=== PATIENT | female | born 1965 | race Caucasian/White ===

== ENCOUNTER 2025-04-12 18:20 | Emergency (ER) | payer BC, SELFPAY ==
--- NOTE | ~2025-04-12 | CT_ITS ---
CT abdomen pelvis w con Clinical History: abdominal pain . Comparison: None Technique: Axial images lung bases to symphysis pubis 100 mL Omnipaque 350 Coronal, sagittal reformats CT images acquired with automatic exposure control for dose reduction DLP: 820 mGy-cm Findings: Lower most pelvis excluded from exam. Lung bases: A few tiny nodules all less than 4 mm. Visualized heart and pericardium: Unremarkable. Liver: Enlarged. Steatosis. Gallbladder: Removed. Spleen: Unremarkable. Pancreas: Unremarkable. Adrenal glands: Unremarkable. Kidneys: Right kidney- No hydronephrosis. No renal stones. Small cysts. Left kidney- No hydronephrosis. No renal stones. Small cysts. Distal esophagus/stomach: Unremarkable. Small bowel loops: Normal caliber and wall thickness. Colon: Normal caliber and wall thickness. Normal RLQ appendix. Nodes: No enlarged nodes. Peritoneum: No ascites. No free air. Urinary bladder: Unremarkable. Uterus: Unremarkable. Adnexa: No masses. Bones: No acute bony abnormality. Soft tissues: Unremarkable. Aorta: No aneurysm or dissection. IVC: Unremarkable. Main portal vein/SMV/splenic vein: Patent. IMPRESSION: 1. No acute findings. Reviewed, dictated and finalized at location R. . DIRECTOR PRODUCT MANAGEMENT IMPRESSION: 1. No acute findings.
[2025-04-12 18:24] VITALS: BP 188/99; PULSE 83; RESP 16; TEMP 36.4; O2SAT 99
[2025-04-13] VITALS (13 sets, daily range): BP systolic 160–186; BP diastolic 87–100; PULSE 60–80; RESP 12–22; TEMP 36.4–36.8; O2SAT 96–100
--- OUTSIDE RECORDS SUMMARY | 2025-04-13 01:06 | XMS_ITS | Encounter Summary ---
Author Organization [facility] Address [address] [place] [address] Care Team Providers Care Parimutuel Clerk Name Role Phone Unavailable Primary Care Provider Unavailabl e Source Comments In the event that this information is protected by federal Confidentiality ofSubstance Use DisorderPatient Records, CFR Part 2 prohibits theunauthorized disclosure of these records.[facility] Encounter Details Date Type Department Care Team ([facility] Contact Info) Description 07/21/2019 Orders Only [place] [facility] [address] [place] [phone] Provider, Historical Social History Tobacco Use Types Packs/Day Years Used Date Smoking Tobacco: Never Assessed Comments Unknown Sex and Gender Information Value Date Recorded Sex Assigned at Female 06/21/2019 2:01 PM SENIOR ACCOUNTS PAYABLE CLERK Legal Sex Female 11:19 AM SENIOR ACCOUNTS PAYABLE CLERK Gender Identity Female 06/21/2019 2:01 PM SENIOR ACCOUNTS PAYABLE CLERK Sexual Orientation Straight 06/21/2019 2: 01 PM SENIOR ACCOUNTS PAYABLE CLERK documented as of this encounter Plan of Treatment Not on file documented as of this encounter Procedures Procedure Name Priority Date/Time Associated Diagnosis Comments OBTAIN MEDICAL RECORDS Routine 07/21/2019 documented in this encounter Results * Obtain Medical Records (07/21/2019) us Historical Provider NURSING INFORMATIONAL/COMMUN ICATION ORDERABLES Final Result [facility] [address] [place] [address] documented in this encounter Visit Diagnoses Not on filedocumented in this encounter
--- OUTSIDE RECORDS SUMMARY | 2025-04-13 01:06 | XMS_ITS | Clinical Summary ---
Author Organization [facility] Address [address] [place] [address] Phone Care Team Providers Care Windows Desktop Engineer Name Role Phone Alejandra Tovar MD Primary Care Provider [phone] Allergies Active Allergy Reactions Criticality Noted Date Comments Aspirin Diarrhea 07/03/2019 Medications ARIPiprazole (ABILIFY) 5 MG Tablet Take 5 mg by mouth daily. Active diazePAM (VALIUM) 10 MG Tablet Take 10 mg by mouth 3 times daily as needed. 05/24/2019 Active lamoTRIgine (LAMICTAL) 200 MG Tablet Take 200 mg by mouth 2 times daily. 03/08/2019 Active magnesium oxide (MAG-OX) 400 MG Tablet Take 400 mg by mouth daily. Active meclizine (ANTIVERT) 25 MG Tablet Take 25 mg by mouth 2 times daily. 05/24/2019 Active pravastatin (PRAVACHOL) 40 MG Tablet Take 40 mg by mouth nightly. 04/23/2019 Active propranolol (INDERAL LA) 160 MG CAPSULE SR 24 HR Take 160 mg by mouth daily. 12/31/2018 Active sertraline (ZOLOFT) 100 MG Tablet Take 100 mg by mouth 2 times daily. 06/12/2019 Active SITagliptin (JANUVIA) 25 MG Tablet Take 25 mg by mouth daily. 04/25/2019 Active topiramate (TOPAMAX) 100 MG Tablet Take 100 mg by mouth 2 times daily. 05/24/2019 Active acetaminophen (TYLENOL) 500 MG Tablet Take 1,000 mg by mouth every 6 hours as needed. Take a max of 5 tablets per day Active Active Problems Problem Noted Date Diagnosed Date Involuntary movements 07/08/2019 Debility 07/03/2019 Immunizations Immunization Administration Dates Next Due Influenza Vaccine 02/18/2019 Pneumococcal Vaccine Adult - 23 Valent 0 Family History Medical History Relation Name Comments Hypertension Mother Relation Name Status Comments Father Mother Social History Tobacco Use Types Packs/Day Years Used Date Smoking Tobacco: Never Smokeless Tobacco: Never Alcohol Use Standard Drinks/Week Comments Never 0 (1 standard drink = 0.6 oz pur e alcohol) AUDIT-C Answer Date Recorded Q1: How often do you have a drink containing alc ohol? 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 Gender Identity Not on file Sexual Orientation Not on file Last Filed Vital Signs Vital Sign Reading Time Taken Comments Blood Pressure 103/72 07/16/2019 9:06 AM CDT Pulse 64 07/16/2019 9:06 AM CDT Temperature 36.8 C (98.2 F) 07/16/2019 9:06 AM CDT Respiratory Rate 16 07/16/2019 9:06 AM CDT Oxygen Saturation 100% 07/16/2019 9:06 AM CDT Inhaled Oxygen Concentration - - Weight 90.8 kg (200 lb 3 oz) 07/13/2019 6:30 AM CDT Height 162.6 cm (5' 4) 07/02/2019 8:37 PM CDT Body Mass Index 34.36 07/02/2019 8:37 PM CDT Plan of Treatment Not on file [place] [address] [address] Advance Directives * Full Code (Latest Code Status on File) Date Activated Date Inactivated Comments 07/02/2019 9:43 PM 07/16/2019 3:09 PM CPR-Full Vikash atment: FULL ARREST: Attempt Resuscitation/CPR wit intubation and mechanical ventilation. PRE-ARREST: Use entire range of life support measures to stabilize the patient. Care Teams Windows Desktop Engineer Relationship Specialty Start Date End Date Alejandra Tovar MD [address] [place] [address] [facility] [place] [address] PCP - General Family Medicine 07/01/19
--- OUTSIDE RECORDS SUMMARY | 2025-04-13 01:06 | XMS_ITS | Clinical Summary ---
Author Organization [facility] Address [address] [place] [address] Care Team Providers Care Instructional Media Services Technician Name Role Phone Unavailable Primary Care Provider Unavailabl e Source Comments In the event that this is information that is protected by federal Confidentiality of Substance UseDisorder Patient Records, 42 CFR Part 2 prohibits the unauthorized disclosure of these records.[facility] Allergies Active Allergy Reactions Criticality Noted Date Comments Aspirin Other (See Comments) High 12/25/2010 Medications ARIPiprazole 5 mg tablet Take 5 mg by mouth daily. Active sitagliptin (JANUVIA) 25 mg Tablet Take 25 mg by mouth daily. 04/25/2019 Active lamoTRIgine 200 mg tablet Take 200 mg by mouth 2 (two) times daily. 03/08/2019 Active pravastatin 40 mg tablet Take 40 mg by mouth daily. 04/23/2019 Active propranoloL 160 mg capsule,extended release 24 hr Take 160 mg by mouth daily. 12/31/2018 Active sertraline 100 mg tablet Take 100 mg by mouth 2 (two) times daily. 06/12/2019 Active Social History Tobacco Use Types Packs/Day Years Used Date Smoking Tobacco: Never Smokeless Tobacco: Never Alcohol Use Standard Drinks/Week Comments Not Currently 0 (1 standard drink = 0.6 oz pur e alcohol) Comments Unknown Sex and Gender Information Value Date Recorded Sex Assigned at Female 06/21/2019 2:01 PM SR SOLUTIONS CONSULTANT Legal Sex Female 11:19 AM SR SOLUTIONS CONSULTANT Gender Identity Female 06/21/2019 2:01 PM SR SOLUTIONS CONSULTANT Sexual Orientation Straight 06/21/2019 2: 01 PM SR SOLUTIONS CONSULTANT Last Filed Vital Signs Vital Sign Reading Time Taken Comments Blood Pressure 146/86 06/25/2019 9:32 AM SR SOLUTIONS CONSULTANT Pulse 75 06/25/2019 9:32 AM SR SOLUTIONS CONSULTANT Temperature - - Respiratory Rate - - Oxygen Saturation 100% 06/25/2019 9:32 AM SR SOLUTIONS CONSULTANT Inhaled Oxygen Concentration - - Weight 96.2 kg (212 lb) 09/06/2019 11:29 AM CDT Height 154.9 cm (5' 1) 09/06/2019 11:29 AM CDT Body Mass Index 40.06 09/06/2019 11:29 AM CDT Plan of Treatment Health Maintenance Due Date Last Done Comments 1 YR COLONOSCOPY 1964 10 YR COLONOSCOPY 1964 2 YR COLONOSCOPY 1964 3 MONTHS COLONOSCOPY 1964 3 YR COLONOSCOPY 1964 4 YR COLONOSCOPY 1964 5 YEAR SIGMOIDOSCOPY 1964 5 YR COLONOSCOPY 1964 6 MONTHS COLONOSCOPY 1964 6 YR COLONOSCOPY 1964 7 YR COLONOSCOPY 1964 8 YR COLONOSCOPY 1964 9 YR COLONOSCOPY 1964 ANNUAL FOBT [address] Colonography 1964 Colorectal Cancer Screening 1964 HIV SCREENING 02/20/1979 HEPATITIS C SCREENING 02/20/1982 LIPID TESTING 02/20/1982 CERVICAL CANCER SCREENING 02/20/1985 BREAST CANCER SCREENING 2004 ZOSTER (1 of 2) 02/20/2014 Pneumococcal 50+ (2 of 2 - PCV) 07/02/2020 07/03/2019, 10/19/2017, 03/14/2010 Diabetes Screening 03/03/2022 03/03/2019 COVID-19 VACCINE ( - season) 2024 INFLUENZA (#1) 2024 02/18/2019, 10/0 04/2017, 01/17/2017, Additional history exists DTAP/TDAP/TD (3 - Td or Tdap) 02/15/2027 02/15/2017, 03/14/2010, 01/21/1997 MENINGOCOCCAL B (MENB) Aged Out No lo nger eligible based on patient's age to complete this topic Insurance [facility] PPO
[2025-04-13 01:44] LABS: Hematocrit 40.2 % (37.0-47.0); Hemoglobin 13.2 g/dL (12.0-15.0); Immature Granulocyte Percent A 0.3 % (0-0.5); Lymphocytes Absolute Auto 1.59 K/mm3 (0.9-3.2); Mean Corpuscular HGB Conc 32.8 g/dl (32-36); Mean Corpuscular Hemoglobin 30.6 pg (26-34); Mean Corpuscular Volume 93.3 fl (80-100); Nucleated Red Blood Cells Absolute Auto 0.000 K/mm3 (0.0-0.012); Nucleated Red Blood Cells Perc 0.0 % (0.0-0.2); Platelet Count Result 220 k/mm3 (150-375); Red Blood Count 4.31 M/mm3 (4.2-5.4); White Blood Count 9.2 K/mm3 (4.5-10.0)
[2025-04-13 01:53] LABS: Alanine Aminotransferase 18 U/L (6-35); Albumin Level 4.8 g/dL (3.5-5.1); Alkaline Phosphatase 97 U/L (38-126); Anion Gap 11 mmol/L (4-12); Aspartate Amino Transferase 21 U/L (14-36); Bilirubin,Total 0.5 mg/dL (0.2-1.3); Blood Urea Nitrogen 30 mg/dL (7-17); Calcium 9.9 mg/dL (8.4-10.2); Carbon Dioxide 22 mmol/L (22-30); Chloride 108 mmol/L (98-107); Estimated CRCL calculation 55 ml/min; Estimated Glomerular Filt Rate 56; Glucose 164 mg/dL (65-110); Lipase 145 U/L (23-300); Potassium 4.0 mmol/L (3.4-5.0); Sodium 141 mmol/L (137-145); Total Protein 8.4 g/dL (6.3-8.2)
[2025-04-13 04:28] LABS: Add Urine Microscopic? YES; Appearance Urine Clear (Clear); Glucose Urine UA 3+ mg/dL (Negative); Leukocyte Esterase Ur Negative LEU/UL (Negative); Nitrate Urine Negative (Negative); Non Pathogenic Casts 0-2; Specific Grav Ur > 1.045 (1.001-1.035)
--- NOTE | 2025-04-13 05:27 | ED_ITS ---
HPI - General Adult General Chief complaint: Abdominal Pain Stated complaint: constipation Time Seen by Provider: 04/13/25 00:44 History of Present Illness HPI narrative: patient is 60-year-old female presents emergency department with chief complaint of constipation patient reports that she feels as though she has to have a bowel movement reports she cannot get her bowels to move patient states she feels as though there is a large amount of stool in her rectum and when she pushes it tries to come out but will not Related Data Allergies Allergy/AdvReac Type Severity Reaction Status Date / Time aspirin AdvReac Intermediate bleeding Verified 04/12/25 18:26 Review of Systems 2 Review of Systems: A 10 system review of systems was completed on the patient and is negative except for what is stated in the HPI. Nursing and ancillary documentation was reviewed. Exam 2 Narrative: GENERAL: Well-appearing, well-nourished, and in no acute distress. HEAD: Normocephalic, atraumatic. EYES: PERRLA and EOMI. ENT: Nares clear, no rhinorrhea or epistaxis. Mucous membranes moist. NECK: Supple. CHEST: Clear to auscultation. No respiratory distress. HEART: Regular rate and rhythm. No murmur heard. Normal peripheral pulses. ABDOMEN: Soft, nontender, nondistended, normal active bowel sounds. : Rectal exam performed that had a large amount of stool in the rectum this was manually broken and a small amount was removed digitally EXTREMITIES: Normal range of motion. No edema. SKIN: Warm, dry, no rash. NEURO: No focal deficits. Alert and oriented x3. PSYCH: Normal mood and affect. Course Vital Signs Vital signs: Vital Signs Temperature 36.4 C 04/12/25 18:24 Pulse Rate 83 04/12/25 18:24 Respiratory Rate 16 04/12/25 18:24 Blood Pressure 188/99 H 04/12/25 18:24 Pulse Oximetry 99 04/12/25 18:24 Oxygen Delivery Room Air 04/12/25 18:24 Temperature 36.8 C 04/13/25 00:39 Pulse Rate 64 04/13/25 00:39 Respiratory Rate 16 04/13/25 00:39 Blood Pressure 174/92 H 04/13/25 00:39 Pulse Oximetry 100 04/13/25 00:39 Oxygen Delivery Room Air 04/13/25 00:39 MDM Differential Diagnosis Differential Diagnosis: differential diagnosis includes bowel obstruction, fecal impaction, laboratory studies were obtained showed normal CBC CMP showed a 30 glucose 164 lactate was 1.0 urinalysis showed no evidence UTI CT scan of the abdomen pelvis has been ordered and is currently pending the patient underwent a enema was massively successful and the patient feels much better Lab Data 04/13/25 01:38 04/13/25 01:38 Labs: Lab Results 04/13/25 04/13/25 Range/Units 01:38 04:14 WBC 9.2 (4.5-10.0) K/mm3 RBC 4.31 (4.2-5.4) M/mm3 Hgb 13.2 (12.0-15.0) g/dL Hct 40.2 (37.0-47.0) % MCV 93.3 (80-100) fl MCH 30.6 (26-34) pg MCHC 32.8 (32-36) g/dl RDW 13.2 (11.5-14.5) % Plt Count 220 (150-375) k/mm3 MPV 9.6 (7.4-10.4) fl Immature Gran % (Auto) 0.3 (0-0.5) % Neut % (Auto) 75.1 H (45.5-73.1) % Lymph % (Auto) 17.4 L (18.3-44.2) % [place] % (Auto) 6.1 (2.6-8.5) % Eos % (Auto) 0.9 (0-4.4) % Baso % (Auto) 0.2 (0.2-1.2) % Lymph # (Auto) 1.59 (0.9-3.2) K/mm3 [place] # (Auto) 0.6 (0.1-0.6) K/mm3 Eos # (Auto) 0.1 (0-0.3) K/mm3 Baso # (Auto) 0.0 (0.0-0.1) K/mm3 Abs Immat Gran (auto) 0.03 (0.00-0.031) K/mm3 Absolute Neuts (auto) 6.9 H (1.3-6.7) K/mm3 Absolute Nucleated RBC 0.000 (0.0-0.012) K/mm3 Nucleated RBC % 0.0 (0.0-0.2) % Sodium 141 (137-145) mmol/L Potassium 4.0 (3.4-5.0) mmol/L Chloride 108 H (98-107) mmol/L Carbon Dioxide 22 (22-30) mmol/L Anion Gap 11 (4-12) mmol/L BUN 30 H (7-17) mg/dL Creatinine 1.00 (0.7-1.0) mg/dL Estim Creat Clear Calc 55 ml/min Estimated GFR 56 L (59 - ) Glucose 164 H (65-110) mg/dL Lactic Acid 1.0 (0.7-2.0) mmol/L Calcium 9.9 (8.4-10.2) mg/dL Total Bilirubin 0.5 (0.2-1.3) mg/dL AST 21 (14-36) U/L ALT 18 (6-35) U/L Alkaline Phosphatase 97 (38-126) U/L Total Protein 8.4 H (6.3-8.2) g/dL Albumin 4.8 (3.5-5.1) g/dL Lipase 145 (23-300) U/L Urine Color Yellow (Yellow) Urine Appearance Clear (Clear) Urine pH 5.5 (5.0-9.0) Ur Specific [place] > 1.045 H (1.001-1.035) Urine Protein Trace (Negative) mg/dL Urine Glucose (UA) 3+ H (Negative) mg/dL Urine Ketones Negative (Negative) mg/dL Ur Blood (Man) Negative (Negative) Urine Nitrate Negative (Negative) Urine Bilirubin Negative (Negative) Urine Urobilinogen 0.2 (<2.0) mg/dL Leukocyte Esterase Rfl Negative (Negative) PAULETTE/UL Urine RBC 0-2 (0-2) /hpf Urine WBC 0-5 (0-3) /hpf Ur Squamous Epith Cells None seen (Few) /hpf Urine Bacteria None seen /hpf Urine Casts 0-2 Discharge Plan Discharge Clinical Impression: Fecal impaction, Pulmonary nodule Patient Disposition: Home Condition: Stable Instructions: Antibiotic Form, Fecal Impaction (ED), Pulmonary Nodules (ED) Patient Language: Kiswahili Follow-up/Referrals: Alejandra Tovar [Other] Time of Disposition: 05:31
== END 2025-04-13 06:00 | disposition home or self-care (01) ==
PROVIDERS: Emergency Provider Emergency Medicine
DX: K56.41 Fecal impaction (principal); R91.1 Solitary pulmonary nodule
CPT/HCPCS: 36415; 74177; 80053; 81001; 83605; 83690; 85025; 99284; Q9967